=== PATIENT | male | born 1950 | race Caucasian/White ===

== ENCOUNTER → 2024-04-01 12:05 | Outpatient (CLI) | payer OTHER, SELFPAY ==
--- NOTE | 2024-04-01 12:10 | DI.US.S_ITS ---
PROCEDURE: US ABDOMEN LIMITED INDICATIONS: Abnormal results of liver function studies TECHNIQUE: Real-time scanning was performed of the abdominal and retroperitoneal organs, with image documentation. COMPARISON: None. FINDINGS: Liver: Liver is normal in size and homogeneous in echotexture. Gallbladder: No gallstones. No wall thickening. No pericholecystic edema. Negative sonographic Mccoy's sign. Biliary ducts: Intrahepatic bile ducts are non-dilated. Extrahepatic bile duct caliber measures 5 mm. Normal is 6-7 mm or less in diameter, or 10 mm or less post-cholecystectomy. Pancreas: Not well seen due to overlying bowel gas. IMPRESSION: 1. Sonographic appearance of the liver is within normal limits. 2. No acute cholecystitis. No gallstones. Dictated by: Martin Perez M.D. on 04/01/2024 at 14:14 Approved by: Martin Perez M.D. on 04/01/2024 at 14:16
== END ==
LOC: US 12:09
PROVIDERS: Referring Provider Registered Nurse; Visit Provider Registered Nurse
DX: R94.5 Abnormal results of liver function studies (principal)
CPT/HCPCS: 76705